=== PATIENT | male | born 1950 | race Caucasian/White ===

== ENCOUNTER 2019-11-29 21:54 | Emergency (ER) | payer BC ==
[~2019-11-29] VITALS: Ht 167.6 cm; Wt 106.6 kg
[2019-11-29] MEDS ORDERED: DECADRON4 MG (22:31)
[2019-11-29] MEDS ORDERED: NORCO 10-325 T1 EACH (22:32)
[2019-11-29] MEDS ORDERED: PERCOCET 5-3251 EACH PO (23:40)
== END 2019-11-30 01:31 | disposition home or self-care (01) ==
LOC: ER 21:54
DX: M54.5 Low back pain (principal)